=== PATIENT | female | born 1970 ===

== ENCOUNTER 2018-05-13 10:23 | Outpatient (CLI) | payer OTHER ==
[~2018-05-13 10:23] MED LIST: FOLIC + B12 TAB1 TAB
== END 2018-05-13 17:00 | disposition home or self-care (01) ==
LOC: MAMO-SONO 10:23
DX: Z12.31 Encounter for screening mammogram for malignant neoplasm of breast (principal); N60.11 Diffuse cystic mastopathy of right breast; N60.12 Diffuse cystic mastopathy of left breast

== ENCOUNTER → 2018-12-11 | Emergency (ER) | payer OTHER ==
[~2018-12-11] VITALS: Ht 152.4 cm; Wt 81.6 kg
== END | disposition left against medical advice (07) ==
LOC: ER 13:02
DX: Z53.20 Procedure and treatment not carried out because of patient's decision for unspecified reasons (principal)

== ENCOUNTER 2018-12-12 11:32 | Outpatient (CLI) | payer OTHER | END 2018-12-12 16:57 | disposition home or self-care (01) | LOC: SONOGRAMA 11:32 | DX: R10.31 Right lower quadrant pain (principal); R10.32 Left lower quadrant pain ==

== ENCOUNTER 2020-02-14 10:22 | Emergency (ER) | payer OTHER ==
[~2020-02-14] VITALS: Ht 152.4 cm; Wt 81.6 kg
== END 2020-02-14 13:30 | disposition home or self-care (01) ==
LOC: ER 10:22
DX: S61.227A Laceration with foreign body of left little finger without damage to nail, initial encounter (principal); W26.0XXA Contact with knife, initial encounter; Y93.G1 Activity, food preparation and clean up; Y92.69 Other specified industrial and construction area as the place of occurrence of the external cause; Y99.8 Other external cause status